=== PATIENT | female | born 1955 | race Caucasian/White ===

== ENCOUNTER 2017-09-27 08:45 | Emergency (ER) | payer MEDICAID ==
[2017-09-27] MEDS ORDERED: Methocarbamol 500 MG Tab ONE (08:55)
[2017-09-27] MEDS ORDERED: Enoxaparin 60 MG/0.6 ML Syringe ONE (08:55)
[2017-09-27 09:20] VITALS: BP 152/89
[2017-09-27] MEDS: Enoxaparin 60 MG/0.6 ML Syringe SUBCUT SCH (10:24)
--- NOTE | 2017-09-27 12:15 | ER ---
HISTORY OF PRESENT ILLNESS: A 62-year-old lady here with complaints of problems with her left arm. She did fall and sustained a left proximal humerus fracture 2 weeks ago. She has been seen by Ortho a couple of times. She was recently seen on and x-rays were taken. She is in a sling at this point. They were treating nonsurgical. The patient states that today she noticed more swelling and tightness in her elbow and a little bit of tingling sensation in her hand. There has been a fair amount of bruising around the elbow that has developed over the last few days. She denies any problems with shortness of breath or wheezing and she does not feel sick. Current medications include Tylenol #3, tramadol, and she does take Aleve. OBJECTIVE: GENERAL APPEARANCE: The patient is awake and alert. No respiratory distress. VITAL SIGNS: Reviewed. Blood pressure 152/89, temperature is 99.2. Physical exam, examining the left arm reveals skin is intact. There is moderate swelling around the elbow area circumferentially. There is bruising on the medial side of the upper arm down to the medial epicondyles area. The hand, wrist, and forearm have good color. The patient has full flexion, extension capability of the hand, but she states she feels a little bit tingly. Capillary refill is good involving the fingertips. LABORATORIES: Labs today, CBC is normal. Metabolic panel is normal as well. D-dimer is elevated at 2210. DIAGNOSIS: Possible DVT. TREATMENT PLAN: The patient will be given Lovenox 1 mg/kg or which is 60 mg subcu here in the ER. We will send two more doses home with her. She is to take one this evening and one tomorrow morning. Arrangements are being made to have an ultrasound of the left arm in [place] tomorrow morning. The patient also has been complaining of some back tightness and pain. We will give her a muscle relaxer to try for about 3 days and see if it helps, Robaxin. The patient is to continue wearing her sling as directed by the orthopedics department. She has no further questions. ADELINE/MODL /[id number]
--- NOTE | 2017-10-02 03:07 | ER ---
ADDENDUM: Clarification of final impression or diagnoses. 1. Left arm swelling with pain and tingling. 2. Recheck involving the proximal humerus fracture. CRS/MODL /[id number]
== END 2017-09-27 10:30 | disposition home or self-care (01) ==
LOC: LB.ED 08:45
DX: M79.602 Pain in left arm (principal); R22.32 Localized swelling, mass and lump, left upper limb; S42.202D Unspecified fracture of upper end of left humerus, subsequent encounter for fracture with routine healing; X58.XXXD Exposure to other specified factors, subsequent encounter
CPT/HCPCS: 36415; 80048; 85025; 85379; 96372; 99283; A9270; J1650

== ENCOUNTER 2021-02-18 18:28 | Emergency (ER) | payer BC, MEDICARE ==
[2021-02-18] MEDS ORDERED: Ketorolac 60 MG/2 ML SDV IM ONE (18:58)
--- NOTE | 2021-02-18 18:58 | EDM.PDOC ---
ED HPI GENERAL MEDICAL PROBLEM - General Chief Complaint: Upper Extremity Injury/Pain Stated Complaint: broken arm Time Seen by Provider: 02/18/21 18:40 Source of Information: Reports: Patient History Limitations: Reports: No Limitations - History of Present Illness INITIAL COMMENTS - FREE TEXT/NARRATIVE: tripped and landed on her left upper arm - c/o pain left elbow and shoulder area. no SOB. h/o fractures humerus in the past and osteoporosis. pain 9 out of 10 when moving Onset: Sudden Duration: Minutes: (30) Location: Reports: Upper Extremity, Left Quality: Reports: Sharp Severity: Moderate Improves with: Reports: Immobilization Worsens with: Reports: Movement - Related Data Allergies Allergy/AdvReac Type Severity Reaction Status Date / Time morphine AdvReac Agitation Verified 06/24/18 09:38 Home Meds: Home Meds Calcium Carbonate/Vitamin D3 [Calcium 600 + Vit D 400 Softgl] 600 mg PO DAILY 04/25/16 [History] L.acidoph,Paracasei, B.lactis [Probiotic] 1 cap PO DAILY 04/25/16 [History] Levothyroxine [Synthroid] 100 mcg PO DAILY 04/25/16 [History] Hydrocodone/Acetaminophen [Hydrocodon-Acetaminophen 5-325] 1 each PO Q6H PRN #10 tablet 02/18/21 [Rx] Ketorolac [Toradol] 10 mg PO TID PRN #12 tab 02/18/21 [Rx] Past Medical History - Past Health History Medical/Surgical History: Denies Medical/Surgical History Other HEENT History: has eyelid drooping Cardiovascular History: Reports: None Other Cardiovascular History: Ruled out with heart. 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 Neurological History: Reports: None Psychiatric History: Reports: None Endocrine/Metabolic History: Reports: Hypothyroidism Hematologic History: Reports: None Immunologic History: Reports: None Oncologic (Cancer) History: Reports: None Other Dermatologic History: Lichen planus - Past Surgical History Head Surgeries/Procedures: Reports: None Social & Family History - Family History Oncologic: Reports: Colon Other Oncologic Family History: Father had colon CA - Caffeine Use Caffeine Use: Reports: Coffee ED ROS GENERAL - Review of Systems Review Of Systems: See Below Constitutional: Reports: No Symptoms HEENT: Reports: No Symptoms Respiratory: Reports: No Symptoms Cardiovascular: Reports: No Symptoms Skin: Reports: No Symptoms Neurological: Reports: No Symptoms ED EXAM, GENERAL - Physical Exam Exam: See Below Exam Limited By: No Limitations General Appearance: Alert, WD/WN, No Apparent Distress Eye Exam: Bilateral Eye: EOMI, PERRL Head: Atraumatic, Normocephalic Respiratory/Chest: No Respiratory Distress, Lungs Clear Cardiovascular: Normal Peripheral Pulses, Regular Rate, Rhythm Extremities: Limited Range of Motion, Other (left elbow swelling, TTP and limtied ROM. Mild ttp over left shoulder ) ED GENERAL MEDICAL PROCEDURES - Splinting Left Upper Extremity Splint Site: left elbow Pre-procedure NV status: Normal Post-procedure NV status: Normal Splint Type: Pre-Fabricated Splint Material: Fiberglass Course - Orders/Labs/Meds Orders: Active Orders 24 hr Category Date Time Status Elbow 2V Lt [CR] Stat Exams 02/18/21 18:58 Taken Elbow wo Cont Lt [CT] Stat Exams 02/18/21 20:45 Taken Shoulder Comp Lt [CR] Stat Exams 02/18/21 18:58 Taken Meds: Medications Discontinued Medications Generic Name Dose Route Start Last Admin Trade Name Freq PRN Reason Stop Dose Admin Hydromorphone HCl 0.5 mg 02/18/21 19:21 Hydromorphone 2 Mg/Ml Sdv IM 02/18/21 19:22 ONETIME ONE Ketorolac Tromethamine 60 mg 02/18/21 18:58 Ketorolac 60 Mg/2 Ml Sdv IM 02/18/21 18:59 ONETIME ONE - Re-Assessments/Exams Free Text/Narrative Re-Assessment/Exam: pain control with IM toradol xray left elbow and left shoulder 02/18/21 21:28 xrays - showed comminuted left elbow fracture spoke with the [facility] - who advised to call [place] given the complexity of the fracture Spoke wit Dr. Tony Licona in [facility] - who recommended a CT scan and that patient call the ortho clinic tomorrow morning to schedule an appointment. also agreed with a splint and arm sling for now Arm splint was applied without complications pain was controlled 02/18/21 21:31 Toradol and Anna for pain control Departure - Departure Time of Disposition: 21:28 Disposition: Home, Self-Care 01 Condition: Good Clinical Impression: Left elbow fracture - Discharge Information *PRESCRIPTION DRUG MONITORING PROGRAM REVIEWED*: Not Applicable *COPY OF PRESCRIPTION DRUG MONITORING REPORT IN PATIENT KEYUR: Not Applicable Prescriptions: Hydrocodone/Acetaminophen [Hydrocodon-Acetaminophen 5-325] 1 each PO Q6H PRN #10 tablet PRN Reason: Pain (Moderate 4-6) Ketorolac [Toradol] 10 mg PO TID PRN #12 tab PRN Reason: Pain (Moderate 4-6) Instructions: Distal Humerus Elbow Fracture Referrals: PCP,None [Primary Care Provider] - Forms: ED Department Discharge Additional Instructions: - keep arm in a sling - call [facility] tomorrow morning at 8:30am - [phone]. Ask for Dr. Tony Licona - regarding your fracture elbow. - take pain medications as prescribed - Problem List & Annotations (1) Left elbow fracture SNOMED Code(s): 640756771 Code(s): S42.402A - UNSP FRACTURE OF LOWER END OF LEFT HUMERUS, INIT FOR CLOS FX Status: Acute Priority: Medium Current Visit: Yes Qualifiers: Encounter type: initial encounter Fracture type: closed Qualified Code(s): S42.402A - Unspecified fracture of lower end of left humerus, initial encounter for closed fracture - Problem List Review Problem List Initiated/Reviewed/Updated: Yes - My Orders Last 24 Hours: My Active Orders 02/18/21 18:58 Elbow 2V Lt [CR] Stat Shoulder Comp Lt [CR] Stat 02/18/21 20:45 Elbow wo Cont Lt [CT] Stat - Assessment/Plan Last 24 Hours: My Active Orders 02/18/21 18:58 Elbow 2V Lt [CR] Stat Shoulder Comp Lt [CR] Stat 02/18/21 20:45 Elbow wo Cont Lt [CT] Stat Plan: - keep arm in a sling - call [facility] tomorrow morning at 8:30am - [phone]. Ask for Dr. Tony Licona - regarding your fracture elbow. - take pain medications as prescribed
[2021-02-18] MEDS ORDERED: HYDROmorphone 2 MG/ML SDV IM ONE (19:21)
[2021-02-18] MEDS ORDERED: Acetaminophen/HYDROcodone 325-5 MG Tab ONE (22:10)
[2021-02-19 05:04] VITALS: BP 140/83; PULSE 62
--- NOTE | 2021-02-19 07:38 | CR ---
Date of Service: 02/18/21 Clinical data: fall LEFT ELBOW: Nonstandard position. There is a fracture through the distal humerus that extends through the capitellum and trochlea. There is a small fragment located posteriorly. CT scan is recommended to better evaluate these fractures. There is soft tissue swelling over the olecranon process of the proximal ulna consistent with olecranon bursitis. No other significant findings. [id number] [facility]
--- NOTE | 2021-02-19 07:41 | CR ---
Date of Service: 02/18/21 Clinical Data: fall LEFT SHOULDER: No priors. There is diffuse osteopenia. There are osteoarthritic changes of the AC and glenohumeral joints. There is narrowing of the subacromial space consistent with a chronic rotator cuff tear. No other significant findings. [id number] [facility]
--- NOTE | 2021-02-19 08:59 | CT ---
DATE OF SERVICE: 02/18/21 CLINICAL DATA: fall, fracture LEFT ELBOW CT: Multislice axial acquisition was performed. Axial images and sagittal and coronal reformations are reviewed. There is a bony avulsion from the olecranon process at the insertion of the triceps tendon. The avulsed fragment is displaced approximately 2.5 cm. There are impacted comminuted fractures through the capitellum and trochlea of the distal humerus. There is a moderate size joint effusion. No other significant findings. [id number] [facility]
== END 2021-02-18 22:10 | disposition home or self-care (01) ==
LOC: LB.ED 18:28
DX: S42.402A Unspecified fracture of lower end of left humerus, initial encounter for closed fracture (principal); E03.9 Hypothyroidism, unspecified; M81.0 Age-related osteoporosis without current pathological fracture; Z88.5 Allergy status to narcotic agent; Z79.899 Other long term (current) drug therapy; W01.0XXA Fall on same level from slipping, tripping and stumbling without subsequent striking against object, initial encounter
CPT/HCPCS: 29105; 73030; 73070; 73200; 96372; 99283; A9270; J1170; J1885

== ENCOUNTER 2025-02-22 18:50 | Emergency (ER) | payer MEDICARE ==
[2025-02-22] MEDS: Ketorolac 30 MG/ML SDV IM ONE (19:40)
[2025-02-22 20:09] LABS: BASOPHILS ABSOLUTE AUTO 0.08 K/uL (0.02-0.10); BASOPHILS PERCENT AUTO 1.4 % (0.0-0.5); EOSINOPHILS ABSOLUTE AUTO 0.11 K/uL (0.04-0.40); EOSINOPHILS PERCENT AUTO 1.9 % (1.0-5.0); LYMPHOCYTES ABSOLUTE AUTO 1.21 K/uL (1.50-4.00); LYMPHOCYTES PERCENT AUTO 21.1 % (20.0-40.0); MEAN PLATELET VOLUME 9.7 fL (6.0-10.0); MONOCYTES ABSOLUTE AUTO 0.44 K/uL (0.20-0.80); MONOCYTES PERCENT AUTO 7.7 % (3.0-10.0); NEUTROPHILS ABSOLUTE AUTO 3.90 K/uL (2.00-7.50); NEUTROPHILS PERCENT AUTO 67.9 % (45.0-70.0); PLATELET COUNT,PLT 271 K/uL (150-500); RED BLOOD CELL COUNT 4.53 M/uL (3.80-5.80); RED CELL DISTRIBUTION WIDTH 12.4 % (11.0-16.0); WHITE BLOOD CELL COUNT,WBC 5.7 K/uL (4.0-11.0)
[2025-02-22 20:26] LABS: BLOOD UREA NITROGEN,BUN 12 mg/dL (8-26); CARBON DIOXIDE,CO2 31.5 mmol/L (21.0-32.0); CHLORIDE,CL 103 mmol/L (98-107); CREATININE 0.58 mg/dL (0.55-1.02); EST CRCL DRUG DOSING (CG) 73.42 mL/min; ESTIMATED GFR 99 mL/min (>60); GLUCOSE RANDOM 98 mg/dL (74-100); POTASSIUM,K 3.7 mmol/L (3.5-5.1); SODIUM,NA 135 mmol/L (136-145)
[2025-02-22 20:44] LABS: INR 1.0 (1.0-3.5); PTT,PARTIAL THROMBOPLSTIN TIME 29.0 SECONDS (24.4-33.2)
[2025-02-22] MEDS ORDERED: Acetaminophen/HYDROcodone 325-5 MG Tab ONE (22:00)
[2025-02-22 22:42] VITALS: BP 134/84; PULSE 57
== END 2025-02-22 22:30 | disposition home or self-care (01) ==
LOC: LB.ED 18:50
DX: H70.12 Chronic mastoiditis, left ear (principal); E03.9 Hypothyroidism, unspecified; Z88.8 Allergy status to other drugs, medicaments and biological substances; Z79.899 Other long term (current) drug therapy; Z79.890 Hormone replacement therapy; Z79.51 Long term (current) use of inhaled steroids
CPT/HCPCS: 36415; 70450; 80048; 85025; 85379; 85610; 85730; 86140; 96372; 99284; A9270-GY; J1885

== ENCOUNTER 2025-07-09 08:57 | Emergency (ER) | payer MEDICARE, BC ==
[2025-07-09 09:58] LABS: MEAN PLATELET VOLUME 9.6 fL (6.0-10.0); PLATELET COUNT,PLT 290.0 K/uL (150-500); RED BLOOD CELL COUNT 4.51 M/uL (3.80-5.80); RED CELL DISTRIBUTION WIDTH 12.2 % (11.0-16.0); WHITE BLOOD CELL COUNT,WBC 6.8 K/uL (4.0-11.0)
[2025-07-09 10:17] LABS: BLOOD UREA NITROGEN,BUN 11 mg/dL (8-26); CARBON DIOXIDE,CO2 30.9 mmol/L (21.0-32.0); CHLORIDE,CL 106 mmol/L (98-107); CREATININE 0.51 mg/dL (0.55-1.02); EST CRCL DRUG DOSING (CG) 82.34 mL/min; ESTIMATED GFR 101 mL/min (>60); GLUCOSE RANDOM 89 mg/dL (74-100); POTASSIUM,K 4.2 mmol/L (3.5-5.1); SODIUM,NA 140 mmol/L (136-145)
[2025-07-09 11:32] VITALS: BP 146/91; PULSE 72
== END 2025-07-09 11:25 | disposition home or self-care (01) ==
LOC: LB.ED 08:57
DX: I83.812 Varicose veins of left lower extremity with pain (principal); M79.622 Pain in left upper arm; M79.89 Other specified soft tissue disorders; R79.1 Abnormal coagulation profile; E03.9 Hypothyroidism, unspecified; Z88.5 Allergy status to narcotic agent; Z88.8 Allergy status to other drugs, medicaments and biological substances; Z79.01 Long term (current) use of anticoagulants; Z79.890 Hormone replacement therapy; Z79.899 Other long term (current) drug therapy
CPT/HCPCS: 36415; 80048; 85027; 85379; 86140; 99283; A9270